=== PATIENT | male | born 1945 | race Caucasian/White ===

== ENCOUNTER → 2017-01-31 | Outpatient (CLI) | payer MEDICARE, OTHER ==
[~2017-01-31] MED LIST: ACET325 PO; ALLO300T2 PO; ASPI81TA82 PO; COLC1TAB7 PO; COZA100T PO; IOHEXOL 350 MG/ML 10 ML VIAL (for RAD DIAG) IV ONE; METO5TAB46 PO; OXYC1SOL5 PO; RIVA10 PO; SPIRCAP INH; TERA2CAP3 PO; Z.0.COMMODE-3:1; Z.0.WALKERFRONT
[2017-01-31 12:46] LABS: FIO2 21 %; OXIMETRY 96 % (90-100)
--- NOTE | 2017-01-31 14:21 | RADRPT ---
EXAM DATE/TIME: 01/31/2017 13:38 [facility] COMPARISON: No previous studies available for comparison. INDICATIONS : Difficulty breathing for years and cough for several weeks. MEDICAL HISTORY : None. SURGICAL HISTORY : None. ENCOUNTER: Initial ACUITY: >1 year PAIN SCORE: 0/10 LOCATION: Bilateral chest FINDINGS: PA and lateral views of the chest demonstrate the lungs to be symmetrically aerated without evidence of mass, infiltrate or effusion. The cardiomediastinal contours are unremarkable. Osseous structure s are intact. CONCLUSION: No acute disease. Adam Bertrand Jr., MD on January 31, 2017 at 14:19 Board Certified Radiologist. This report was verified electronically.
--- NOTE | 2017-01-31 14:53 | RADRPT ---
EXAM DATE/TIME: 01/31/2017 13:51 [facility] COMPARISON: CHEST PA & LAT, January 31, 2017, 13:38. INDICATIONS : Dyspnea. IV CONTRAST: 70 cc Omnipaque 350 (iohexol) IV RADIATION DOSE: 6.56 CTDIvol (mGy) MEDICAL HISTORY : Hypertension. SURGICAL HISTORY : None. ENCOUNTER: Initial ACUITY: 1 day PAIN SCALE: 0/10 LOCATION: chest TECHNIQUE: Volumetric scanning of the chest was performed. Using automated exposure control and adjustment of t he mA and/or kV according to patient size, radiation dose was kept as low as reasonably achievable to obtain optimal diagnostic quality images. DICOM format image data is available electronically for review and comparison. Follow-up recommendations for detected pulmonary nodules are based at a minimum on nodule size and pa tient risk factors according to Fleischner Society Guidelines. FINDINGS: LUNGS: There is no consolidation or pneumothorax. No concerning pulmonary nodule is visualized. PLEURA: There is no pleural thickening or pleural effusion. MEDIASTINUM: The heart and great vessels demonstrate no acute abnormality. There is no mediastinal or hilar lymph adenopathy. Coronary artery calcifications are present. There is a small amount of pericardial fluid anteriorly. AXILLAE: Within normal limits. No lymphadenopathy. SKELETAL: Within normal limits for patient age. MISCELLANEOUS: The visualized upper abdominal organs demonstrate no acute abnormality. There is mild hepatic steatos is. CONCLUSION: 1. The lungs are clear bilaterally with no infiltrates or effusions. 2. Coronary artery calcifications are present. 3. Small amount of pericardial fluid. 4. Mild hepatic steatosis. Abdoul Villalba MD on January 31, 2017 at 14:49 Board Certified Radiologist. This report was verified electronically.
--- NOTE | 2017-02-05 10:59 | RSPPFT ---
DATE OF PROCEDURE: 01/31/17 COMMENTS: VOLUMES DYNAMIC: FVC and FEV1 mildly reduced. STATIC: TLC mildly reduced; FRC and RV normal. FLOWS: FEV1% moderately reduced; FEF 25-75 severely reduced. DIFFUSION: Mildly reduced. FLOW VOLUME LOOP: Pattern of variable intrathoracic airways obstruction. IMPRESSION: Moderate obstructive ventilator defect with a mild restrictive defect and no significant hyperinflation. There is a mild reduction in diffusion as well consistent with emphysema. There is some improvement post-bronchodilator.
== END ==
LOC: HRSP 12:06
PROVIDERS: ATTEND Family Medicine
DX: R06.00 Dyspnea, unspecified (principal)
CPT/HCPCS: 71020; 71260; 94060; 94726; 94729; 94760; Q9967